=== PATIENT | male | born 1995 | race Caucasian/White ===

== ENCOUNTER 2017-07-05 14:25 | Emergency (ER) | payer BC ==
[2017-07-05 14:32] VITALS: BP 111/66
--- NOTE | 2017-07-05 14:44 | EDPHY ---
H & P Stated Complaint: R ring finger lac Time Seen by Provider: 07/05/17 14:37 HPI/ROS: HPI: This is a 22-year-old male who presents with Chief Complaint: Right ring finger laceration Location: Right ring finger Quality: Laceration Duration: 1 hr prior to arrival Signs and Symptoms: + bleeding, no radiation, + numbness at the tip of his finger, no weakness, no tingling, no incontinence, no decreased range of motion , no swelling, no pain, no fever Timing: Acute Severity: Moderate Context: Patient is left hand dominant, presents with complaints of accidentally cutting his right ring finger 1 hr prior to arrival. 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 He was not wearing gloves. He reports that a metal stake accidentally cut the medial portion of his right ring finger. He complains of some mild decreased sensation to the tip. Denies any weakness/decreased range of motion. Reports tetanus is current. Patient applied direct pressure and the bleeding stopped. Modifying Factors: Comment: ROS: see HPI Constitutional: No fever, no chills, no weight loss Eyes: No blurred vision Respiratory: No shortness of breath, no cough Cardiovascular: No chest pain Gastrointestinal: No nausea, no vomiting no diarrhea Genitourinary: No dysuria Extremities: No myalgias Neurologic: No weakness, no numbness Skin: No rashes Hematologic: No bruising, no bleeding MEDICAL/SURGICAL/SOCIAL HISTORY: Medical history: Generally healthy. Does not take any regular medications. Surgical history: Denies Social history: CONSTITUTIONAL: Slightly anxious adult male, awake and alert, no obvious distress EXTREMITIES: 2/2 pulses, strength 5/5, right 4th digit, medial aspect, 2 inch vertical superficial laceration extending across the PIP lateral portion. DIP/ PIP/MCP flexion/extension intact with mild decrease light touch sensation at the distal tip. no deformities, no clubbing, no cyanosis or edema. NEUROLOGICAL: no focal neuro deficits. GCS 15. Light touch sensation intact. SKIN: Warm and dry, no erythema. no rash. Good capillary refill. Source: Patient Exam Limitations: No limitations - Personal History Current Tetanus/Diphtheria Vaccine: Yes Current Tetanus Diphtheria and Acellular Pertussis (TDAP): Yes - Medical/Surgical History Hx Asthma: No Hx Chronic Respiratory Disease: No Hx Diabetes: No Hx Cardiac Disease: No Hx Renal Disease: No Hx Cirrhosis: No Hx Alcoholism: No Hx HIV/AIDS: No Hx Splenectomy or Spleen Trauma: No Other PMH: L ankle surgery - Social History Smoking Status: Never smoked Constitutional: Initial Vital Signs Temperature (C) 36.7 C 07/05/17 14:30 Heart Rate 118 H 07/05/17 14:30 Respiratory Rate 16 07/05/17 14:30 Blood Pressure 111/66 07/05/17 14:30 O2 Sat (%) 93 07/05/17 14:30 O2 Delivery Mode Room Air Allergies/Adverse Reactions: No Known Allergies Allergy (Unverified 07/05/17 14:29) Home Medications: Medication Instructions Recorded NK [No Known Home Meds] 07/05/17 Medical Decision Making Procedures: Procedure: Laceration repair. Verbal consent was obtained from the patient. The right 4th digit, medial aspect, 2 inch vertical superficial laceration extending across the PIP lateral portion was anesthetized in the usual fashion using 6 mL of 0.5% bupivacaine. The wound was irrigated, draped and explored to its base with a gloved finger. There were no deep structures involved. No tendon injury was identified. The wound was repaired with #10, 5-0 Prolene. Good hemostasis achieved and patient tolerated procedure well. Xeroform and clean sterile dressing applied. The procedure was performed by myself. Procedure: Splint placement. A right aluminum splint was applied by the Emergency Room vehicle modification technician. After application of the splint I returned and re-examined the patient. The splint was adequately immobilizing the joint and distal to the splint the patient's circulation and sensation was intact. ED Course/Re-evaluation: Right finger x-ray ordered Tetanus is up-to-date Laceration repaired Concern for nerve injury. Placed in finger splint with Ortho follow-up secondary to nerve injury No signs of neurovascular compromise/tenting of skin/compartment syndrome/ extremities and joints examined above and below area of concern and are neurovascularly intact. This patient was seen under the supervision of my secondary supervising physician. I evaluated care for this patient independently. Discussed this patient with Dr. Arriola who did not see the patient. Differential Diagnosis: Differential diagnosis includes but is not limited to foreign body, laceration, abrasion, tendon injury, nerve injury. Departure - Departure Disposition: Home, Routine, Self-Care Clinical Impression: Laceration of right ring finger with complication, Nerve injury Condition: Good Instructions: Care For Your Stitches (ED), Finger Laceration (ED) Additional Instructions: Keep the dressing/splint dry and in place for 48 hours. After 48 hours, you may remove the dressing; wash the site daily with mild soap and water; then pat dry. Take Tylenol 650 mg every 4 hours and/or Ibuprofen 600 mg every 8 hours with food as needed for pain. Apply ice for 30 minutes at a time; 2-3 times per day for the next 1-2 days. Follow up with [facility] in 5-7 days as there is concern for nerve injury at which time they will evaluate and recommend with you if conservative management versus surgery is indicated. Wound Care Follow-Up: Removal of sutures in [10] days. Suture removal is complimentary in uncomplicated cases. Infection or abnormal findings would require reevaluation by the MD. In that case, you may be billed. The x-rays obtained in the emergency department today demonstrate no evidence of an obvious fracture. Sometimes fractures are not obvious on the initial set of x-rays performed in the ED. For this reason, you should have repeat x-rays performed in 7-10 days if you are having any pain exclude the possibility of an occult fracture. Referrals: August Aleman MD [Medical Doctor] - 5-7 days, call for appt.
== END 2017-07-05 15:39 | disposition home or self-care (01) ==
PROC: 0HQFXZZ Repair Right Hand Skin, External Approach (ICD-10-PCS; principal; 2017-07-05)
DX: S61.214A Laceration without foreign body of right ring finger without damage to nail, initial encounter (principal); W27.1XXA Contact with garden tool, initial encounter; Y92.69 Other specified industrial and construction area as the place of occurrence of the external cause; Y99.0 Civilian activity done for income or pay; Y93.89 Activity, other specified
CPT/HCPCS: L3925